=== PATIENT | male | born 1990 ===

== ENCOUNTER 2018-09-30 02:52 | Emergency (ER) | payer SELFPAY ==
[2018-09-30 03:02] VITALS: BP 142/92; PULSE 110; RESP 16; TEMP 98.3; O2SAT 98
--- NOTE | 2018-09-30 03:31 | ED PDOC ---
HPI: Psych/Substance Abuse Time Seen by Provider: 09/30/18 03:05 Chief Complaint (Nursing): Medical Clearance Chief Complaint (Provider): Medical clearance ED Caveat: Uncooperative Involuntary Hold By: Local Law Enforcement Additional Complaint(s): 27yo male, with past medical history of bipolar disorder, brought to ER by [place] police for medical and psychiatric clearance prior to incarceration. Patient is currently under custody due to DUI and cannabis possession. Upon arrival to ER, patient requesting to speak with a psychiatrist stating his mental health issues need attention; patient denies being on any medications. Per police, patient refused breathalyzer at scene and patient states he was not in possession of anything. HPI & ROS limited as patient is uncooperative. PMD: Dr. Connell Past Medical History Reviewed: Historical Data, Nursing Documentation, Vital Signs Vital Signs: Last Vital Signs Temp 98.3 F 09/30/18 02:59 Pulse 110 H 09/30/18 02:59 Resp 16 09/30/18 02:59 BP 142/92 H 09/30/18 02:59 Pulse Ox 98 09/30/18 02:59 - Medical History PMH: Bipolar Disorder - Surgical History Other surgeries: right hand surgery - Family History Family History: States: No Known Family Hx - Immunization History Hx Tetanus Toxoid Vaccination: Yes (UTD) - Allergies Allergies/Adverse Reactions: Allergies Allergy/AdvReac Type Severity Reaction Status Date / Time No Known Allergies Allergy Verified 09/30/18 03:02 Review of Systems Review Of Systems: ROS cannot be obtained secondary to pt's inabilty to answer questions. (patient uncooperative) Physical Exam - Reviewed Nursing Documentation Reviewed: Yes Vital Signs Reviewed: Yes - Physical Exam Appears: Positive for: Non-toxic, No Acute Distress Head Exam: Positive for: ATRAUMATIC, NORMAL INSPECTION, NORMOCEPHALIC Skin: Positive for: Normal Color Eye Exam: Positive for: Normal appearance Neck: Positive for: Painless ROM, Supple Cardiovascular/Chest: Positive for: Regular Rate, Rhythm Respiratory: Positive for: Normal Breath Sounds Gastrointestinal/Abdominal: Positive for: Soft. Negative for: Tenderness, Distended, Guarding Extremity: Positive for: Normal ROM (FROM left hand, wrist, and digits), Tenderness (diffuse), Capillary Refill (< 2 seconds), Other (superficial abrasions to dorsum of left hand and proximal phalanges). Negative for: Defo rmity, Swelling Neurologic/Psych: Positive for: Alert, Oriented (x3), Mood/Affect (agitated), Gait (steady in ED). Negative for: Aphasia, Facial Droop - ECG O2 Sat by Pulse Oximetry: 98 (RA) Pulse Ox Interpretation: Normal Medical Decision Making Medical Decision Making: Impression: 27yo male brought to ER for psych/medical clearance prior to incarceration Plan: -- UDS -- Serum alcohol -- Crisis evaluation -- Hand XR -- Tylenol 650mg PO 0322 Patient increasingly agitated, and due to concern for safety of patient as well as staff, patient placed in 4-point restraints. Patient seen at bedside by Dr Farnsworth. Patient refusing any blood or urine tests. 0330 4 point restraints removed. 0355 Patient cleared for discharge per Dr Rosales with the diagnosis of adjustment disorder. 0405 Hand XR: (-) fracture (-) dislocation as read by Gloria VO Patient notified that official radiology reading is still pending and that he would be notified of any discrepancies via phone. Bandaids applied to abrasions. Patient educated on wound care. Lab/Diagnostic results d/w the patient in great detail. Diagnosis of hand pain, skin abrasions, clearance for incarceration d/w the patient. Based on history, exam and diagnostic results, plan will be for discharge into PD custody. Patient instructed to follow-up with pmd / referral provided / the clinic in 1- 2 days without fail. Return to the emergency room at any time for any new or worsening symptoms. I have given the patient opportunity to ask any additional questions. Scribe Attestation: Documented by Jolene Mayes, acting as a scribe for BERTHA Cha. Provider Scribe Attestation: All medical record entries made by the Scribe were at my direction and personally dictated by me. I have reviewed the chart and agree that the record accurately reflects my personal performance of the history, physical exam, medical decision making, and the department course for this patient. I have also personally directed, reviewed, and agree with the discharge instructions and disposition. Disposition - Clinical Impression Clinical Impression: Medical clearance for incarceration, Hand pain, left, Skin abrasion - Patient ED Disposition Is Patient to be Admitted: No Counseled Patient/Family Regarding: Studies Performed, Diagnosis, Need For Followup - Disposition Referrals: Bro Connell MD [Staff Provider] - Disposition: Discharged/Transfer to Law Enforcement Disposition Time: 04:05 Condition: FAIR Additional Instructions: PATIENT IS MEDICALLY AND PSYCHIATRICALLY STABLE FOR INCARCERATION. Instructions: Wound Care, Muscle and Bone Pain (DC), Skin Abrasions (DC), Hand Pain (DC) Forms: [facility] (Latvian) Print Language: DANISH - POA Present On Arrival: None
--- NOTE | 2018-09-30 13:44 | RAD ---
PROCEDURE: Left Hand Radiographs. HISTORY: Left hand pain/numbness COMPARISON: None. FINDINGS: BONES: Normal. No fracture. JOINTS: Normal. No osteoarthritic changes. SOFT TISSUES: Normal. OTHER FINDINGS: None. IMPRESSION: Normal left hand radiographs.
== END 2018-09-30 04:20 ==
LOC: H.ER 02:52
DX: M79.642 Pain in left hand (principal); S60.512A Abrasion of left hand, initial encounter; F31.9 Bipolar disorder, unspecified; Y35.813A Legal intervention involving manhandling, suspect injured, initial encounter; Y92.89 Other specified places as the place of occurrence of the external cause

== ENCOUNTER 2018-10-01 00:19 | Inpatient (IN) | payer OTHER ==
[2018-10-01 00:42] VITALS: O2SAT 100
--- NOTE | 2018-10-01 01:50 | ED PDOC ---
HPI: Psych/Substance Abuse Time Seen by Provider: 10/01/18 00:34 Chief Complaint (Nursing): Psychiatric Evaluation Chief Complaint (Provider): Psychiatric Evaluation History Per: Patient History/Exam Limitations: no limitations Onset/Duration Of Symptoms: Days (intermittent since 2011) Current Symptoms Are (Timing): Still Present Suicide/Self Injury Attempted (Context): None Additional Complaint(s): Patient is a 27 year old male who presents for psychiatric evaluation, as directed by [facility]. Patient was seen by this provider last night for medical clearance for incarceration as he was in custody for a DWI. Patient reports excessive drinking recently to "avoid his problems". Patient notes that since 2011 he has been having intermittent episodes of suicidal thoughts that have been worsening. Patient reports today they are "more intense" than usual. Patient states he has had thoughts of overdosing on aspirin, shooting himself in the head (patient does not have access to a gun), or jumping into the [place]. Patient reports he has never sought help for this until now; patient was told in the past he may be bipolar from a family friend but he has never been clinically diagnosed or medicated for mental illness. Patient notes his mother and sister both suffer from PTSD and anxiety. No physical complaints. Denies HI, A/V hallucinations. PMD: Ko Past Medical History Reviewed: Historical Data, Nursing Documentation, Vital Signs Vital Signs: Last Vital Signs Temp 98.3 F 10/01/18 00:40 Pulse 82 10/01/18 00:40 Resp 18 10/01/18 00:40 BP 130/98 H 10/01/18 00:40 Pulse Ox 100 10/01/18 00:40 - Medical History PMH: No Chronic Diseases - Surgical History Surgical History: No Surg Hx - Family History Family History: States: Other Other Family History: PTSD, Anxiety - Social History Current smoker - smoking cessation education provided: Yes (3 cigs/day) Alcohol: Other (daily) Drugs: Cannabis (daily) - Immunization History Hx Tetanus Toxoid Vaccination: Yes (UTD) - Allergies Allergies/Adverse Reactions: Allergies Allergy/AdvReac Type Severity Reaction Status Date / Time No Known Allergies Allergy Verified 09/30/18 03:02 Review of Systems ROS Statement: Except As Marked, All Systems Reviewed And Found Negative Psych: Positive for: Suicidal ideation Physical Exam - Reviewed Nursing Documentation Reviewed: Yes Vital Signs Reviewed: Yes - Physical Exam Comments: GENERALIZED APPEARANCE: Patient is awake, alert, oriented x3 and in no acute distress. SKIN: Warm, dry; (-) cyanosis ENMT: Airway patent, (-) stridor. Mucous membranes moist. NECK: Supple, FROM CHEST AND RESPIRATORY: (-) retractions, (-) rales, (-) rhonchi, (-) wheezes; breath sounds equal bilaterally. Respirations even and nonlabored. HEART AND CARDIOVASCULAR: (-) irregularity ABDOMEN AND GI: Soft; (-) tenderness; (-) distention, (-) guarding EXTREMITIES: (-) deformity NEURO AND PSYCH: Mental status as above. Affect: flat. Gait: steady. Speech: clear. - Laboratory Results Result Diagrams: 10/01/18 03:17 10/01/18 03:17 - ECG O2 Sat by Pulse Oximetry: 100 (RA) Pulse Ox Interpretation: Normal Medical Decision Making Medical Decision Making: Initial Impression: psychiatric evaluation, suicidal ideation Plan: -1:1 observation -Crisis evaluation -Re-evaluation 0250 Per crisis evaluation, patient to be admitted per Dr Rosales with the diagnosis of adjustment disorder with depressed mood. CBC, CMP, U/A, Serum Alcohol, UDS ordered for medical clearance. 0320 Utox: (+) cannabinoids 0350 U/A (-) evidence of UTI CBC and CMP grossly unremarkable. Serum Alcohol: <10 Patient is medically stable for psychiatric admission. Vitals stable. Patient agreeable to admission. Disposition - Clinical Impression Clinical Impression: Adjustment disorder with depressed mood - Patient ED Disposition Is Patient to be Admitted: Yes Counseled Patient/Family Regarding: Studies Performed, Diagnosis - Disposition Disposition Time: 03:15 Condition: FAIR - Pt Status Changed To: Hospital Disposition Of: Inpatient - Admit Certification Admit to Inpatient:: After my assessment, the patient will require hospitalization for at least two midnights. This is because of the severity of symptoms shown, intensity of services needed, and/or the medical risk in this patient being treated as an outpatient. - POA Present On Arrival: None Results - Lab Results Lab Results: 10/01/18 01:05 Urine Opiates Screen Negative Urine Methadone Screen Negative Ur Barbiturates Screen Negative Ur Phencyclidine Scrn Negative Ur Amphetamines Screen Negative U Benzodiazepines Scrn Negative U Oth Cocaine Metabols Negative U Cannabinoids Screen Positive H
[2018-10-01 02:45] LABS: BARBITURATES, UR NEGATIVE (NEGATIVE); BENZODIAZEPINES, UR NEGATIVE (NEGATIVE); OPIATES, UR NEGATIVE (NEGATIVE); PHENCYCLIDINE, UR NEGATIVE (NEGATIVE)
[2018-10-01 03:24] LABS: BASO % 0.4 % (0.0-2.0); EOS % 0.2 % (0.0-4.0); HEMOGLOBIN 14.4 g/dL (12.0-18.0); LYMPH # 2.1 K/uL (1.0-4.3); LYMPH % 32.3 % (20.0-40.0); MEAN CELL VOLUME 91.4 fl (80.0-94.0); MEAN CORPUSCULAR HEMOGLOBIN 31.3 pg (27.0-31.0); MEAN CORPUSCULAR HGB CONC 34.2 g/dL (33.0-37.0); MEAN PLATELET VOLUME 7.4 fl (7.2-11.7); MONO # 0.6 K/uL (0.0-0.8); MONO % 8.9 % (0.0-10.0); NEUT # 3.8 K/uL (1.8-7.0); NEUT % 58.2 % (50.0-75.0); NRBC % 0.1 % (0.0-0.0); RBC 4.61 Mil/uL (4.40-5.90); RED CELL DISTRIBUTION WIDTH 12.7 % (11.5-14.5); WHITE BLOOD COUNT 6.5 K/uL (4.8-10.8)
[2018-10-01 03:36] LABS: ALB/GLOB RATIO 1.6 (1.0-2.1); ALBUMIN 4.4 g/dL (3.5-5.0); ALT/SGPT 21 U/L (21-72); AST/SGOT 31 U/L (17-59); BLOOD UREA NITROGEN 19 mg/dl (9-20); CALCIUM 9.3 mg/dL (8.4-10.2); GFR NON-AFRICAN AMERICAN > 60
[2018-10-01 03:47] LABS: SQUAMOUS EPITHIAL < 1 /hpf (0-5); URINE BILIRUBIN NEGATIVE (NEGATIVE); URINE BLOOD NEGATIVE (NEGATIVE); URINE CLARITY SLIGHTY-CLOUDY (Clear); URINE COLOR YELLOW (YELLOW); URINE GLUCOSE (UA) NEG (NEGATIVE); URINE LEUKOCYTE ESTERASE NEG Leu/uL (Negative); URINE PROTEIN 30 mg/dL (NEGATIVE); URINE UROBILINOGEN 0.2-1.0 mg/dL (0.2-1.0)
[2018-10-01] MEDS ORDERED: Magnesium Hydroxide Susp 30 ml UD PO PRN (04:42)
[2018-10-01] MEDS ORDERED: Alum-Mag Hydrox-Simethicone Susp (30 mL) PO PRN (04:42)
--- NOTE | 2018-10-01 06:28 | PCM.BM ---
Treatment Plan Problems - Problems identified on initial assessmt Hopelessness/Helplessness Date Initiated: 10/01/18 Time Initiated: : Assessment reference: NA Status: Active Altered Sleep Patterns Date Initiated: 10/01/18 Time Initiated: Assessment reference: NA Status: Active Treatment assets and liabiliti Patient Assests: cooperative, educated, ADL independent, physically healthy, negotiates basic needs, cognitively intact Patient Liabilities: live alone, poor support system, substance abuse - Milieu Protocol Maintain good personal hygiene: daily Encourage regular showers, daily Remind patient to perform daily oral care, daily Assist patient to perform ADL's Conduct patient checks and document Observation sheet: Q15 minutes Maintain personal safety: every shift Educate patient to report safety concerns to staff, every shift Monitor environment for contraband/sharps Medication safety: Monitor for expected outcome, potential side effects: every shift, Assess barriers to learning: every shift, Assess readiness for medication education: every shift
--- NOTE | 2018-10-01 10:03 | CP.PCM.CON ---
History of Present Illness - History of Present Illness History of Present Illness: Reason for Consult: Per hospital protocol HPI: 27 year old male no past medical hx initially evaluated in ED for medical clearance for incarceration for DWI. Patient subsequently admitted to psych for suicidal ideations. No other complaints at this time. NAD. HD stable. ROS: Per HPI, all other systems reviewed and neg Past Patient History - Past Social History Alcohol: Other (daily) Drugs: Cannabis (daily) - CARDIAC Hx Cardiac Disorders: No Hx Hypertension: No - PULMONARY Hx Respiratory Disorders: No Hx Tuberculosis: No - NEUROLOGICAL Hx Neurological Disorder: No Hx Seizures: No - HEENT Hx HEENT Problems: No - RENAL Hx Chronic Kidney Disease: No - ENDOCRINE/METABOLIC Hx Endocrine Disorders: No - HEMATOLOGICAL/ONCOLOGICAL Hx Blood Disorders: No Hx Human Immunodeficiency Virus (HIV): No - INTEGUMENTARY Hx Dermatological Problems: No - MUSCULOSKELETAL/RHEUMATOLOGICAL Hx Musculoskeletal Disorders: No - GASTROINTESTINAL Hx Gastrointestinal Disorders: No - GENITOURINARY/GYNECOLOGICAL Hx Genitourinary Disorders: No Hx Sexually Transmitted Disorders: No - PSYCHIATRIC Hx Depression: Yes Hx Substance Use: Yes (MJ) - SURGICAL HISTORY Hx Surgeries: Yes Hx Orthopedic Surgery: Yes (rt hand) - ANESTHESIA Hx Anesthesia: Yes Hx Anesthesia Reactions: No Meds Allergies/Adverse Reactions: Allergies Allergy/AdvReac Type Severity Reaction Status Date / Time No Known Allergies Allergy Verified 09/30/18 03:02 - Medications Medications: Current Medications Acetaminophen (Tylenol 325mg Tab) 650 mg PO Q4 PRN PRN Reason: pain level 1-10 Al Hydrox/Mg Hydrox/Simethicone (Maalox Plus 30 Ml) 30 ml PO Q4 PRN PRN Reason: Dyspepsia Diphenhydramine HCl (Benadryl) 50 mg PO HS PRN PRN Reason: Sleep Lorazepam (Ativan) 2 mg IM Q8 PRN PRN Reason: Anxiety/Agitation,Unable PO Lorazepam (Ativan) 1 mg PO Q8 PRN PRN Reason: Anxiety/Agitation Magnesium Hydroxide (Milk Of Magnesia) 30 ml PO HS PRN PRN Reason: Constipation Physical Exam - Constitutional Additional comments: Vitals Reviewed GEN: WDWN, alert, cooperative HEENT: NCAT, PERRL, EOMI HEART: RRR, +S1S2, NO MRG LUNG: CTAB, NO WRR ABD: soft, NT, ND, No HSM, No masses EXT: normal pedal pulses NEURO: awake, alert SKIN: warm, dry PSYCH: normal mood, normal affect Results - Vital Signs Recent Vital Signs: Last Vital Signs Temp 97.1 F L 10/01/18 06:15 Pulse 83 10/01/18 06:15 Resp 18 10/01/18 06:18 BP 137/90 10/01/18 06:15 Pulse Ox 100 10/01/18 05:02 - Labs Result Diagrams: 10/01/18 03:17 10/01/18 03:17 Labs: Laboratory Results - last 24 hr 10/01/18 10/01/18 10/01/18 01:05 03:17 03:17 WBC 6.5 RBC 4.61 Hgb 14.4 Hct 42.2 MCV 91.4 MCH 31.3 H MCHC 34.2 RDW 12.7 Plt Count 221 MPV 7.4 Neut % (Auto) 58.2 Lymph % (Auto) 32.3 [place] % (Auto) 8.9 Eos % (Auto) 0.2 Baso % (Auto) 0.4 Neut # (Auto) 3.8 Lymph # (Auto) 2.1 [place] # (Auto) 0.6 Eos # (Auto) 0.0 Baso # (Auto) 0.0 Sodium 137 Potassium 3.8 Chloride 100 Carbon Dioxide 27 Anion Gap 14 BUN 19 Creatinine 0.9 Est GFR ( Amer) > 60 Est GFR (Non-Af Amer) > 60 Random Glucose 93 Calcium 9.3 Total Bilirubin 1.4 H AST 31 ALT 21 Alkaline Phosphatase 79 Total Protein 7.1 Albumin 4.4 Globulin 2.7 Albumin/Globulin Ratio 1.6 Urine Color Urine Clarity Urine pH Ur Specific Jenn[place] Urine Protein Urine Glucose (UA) Urine Ketones Urine Blood Urine Nitrate Urine Bilirubin Urine Urobilinogen Ur Leukocyte Esterase Urine RBC (Auto) Urine Microscopic WBC Ur Squamous Epith Cells Urine Opiates Screen Negative Urine Methadone Screen Negative Ur Barbiturates Screen Negative Ur Phencyclidine Scrn Negative Ur Amphetamines Screen Negative U Benzodiazepines Scrn Negative U Oth Cocaine Metabols Negative U Cannabinoids Screen Positive H Alcohol, Quantitative < 10 10/01/18 03:17 WBC RBC Hgb Hct MCV MCH MCHC RDW Plt Count MPV Neut % (Auto) Lymph % (Auto) [place] % (Auto) Eos % (Auto) Baso % (Auto) Neut # (Auto) Lymph # (Auto) [place] # (Auto) Eos # (Auto) Baso # (Auto) Sodium Potassium Chloride Carbon Dioxide Anion Gap BUN Creatinine Est GFR ( Amer) Est GFR (Non-Af Amer) Random Glucose Calcium Total Bilirubin AST ALT Alkaline Phosphatase Total Protein Albumin Globulin Albumin/Globulin Ratio Urine Color Yellow Urine Clarity Slighty-cloudy Urine pH 6.0 Ur Specific Jenn[place] 1.030 Urine Protein 30 Urine Glucose (UA) Neg Urine Ketones 20 Urine Blood Negative Urine Nitrate Negative Urine Bilirubin Negative Urine Urobilinogen 0.2-1.0 Ur Leukocyte Esterase Neg Urine RBC (Auto) 2 Urine Microscopic WBC 4 Ur Squamous Epith Cells < 1 Urine Opiates Screen Urine Methadone Screen Ur Barbiturates Screen Ur Phencyclidine Scrn Ur Amphetamines Screen U Benzodiazepines Scrn U Oth Cocaine Metabols U Cannabinoids Screen Alcohol, Quantitative Assessment & Plan - Assessment and Plan (Free Text) Plan: 27 year old male no past medical hx initially evaluated in ED for medical clearance for incarceration for DWI. Patient subsequently admitted to psych for suicidal ideations. No other complaints at this time. NAD. HD stable. Suicidal Ideations management per psych
--- NOTE | 2018-10-01 14:42 | PCM.PSYCH ---
Initial Psychiatric Evaluation - Initial Psychiatric Evaluation Chief Complaint (in patient's own words): I have been depressed for a long time History of Present Illness and Precipitating Events: pt is 27 ys old male without previous formal psychiatric treatment , PT has been brought t ER after being arrested for DUI reportedly pt has been driving while intoxicated and he was on phone with suicidal hot line as pt was having suicidal thoughts with plan to overdose on tylenol pt has been increasingly depressed after a recent break up with girl friend , reported low self esteem feeling worthless and hopeless, using increasing amount of alcohol and cannabis, having increased anxiety and racing thoughts, episodes of anger and irritability, on day of evaluation after having conflict with ex girl friend he started experiencing suicidal ideations on the unit pt reported mood swings, tearful, irritable continues to have passive suicidal ideation without active plan on the unit Current Medications: Active Medications Generic Name Dose Route Start Last Admin Trade Name Freq PRN Reason Stop Dose Admin Acetaminophen 650 mg 10/01/18 06:38 Tylenol 325mg Tab PO Q4 PRN pain level 1-10 Al Hydrox/Mg Hydrox/Simethicone 30 ml 10/01/18 04:42 Maalox Plus 30 Ml PO Q4 PRN Dyspepsia Aripiprazole 5 mg 10/02/18 09:00 Abilify PO DAILY DESTINEY Diphenhydramine HCl 50 mg 10/01/18 04:47 Benadryl PO HS PRN Sleep Gabapentin 100 mg 10/01/18 13:00 Neurontin PO TID DESTINEY Lorazepam 2 mg 10/01/18 04:42 Ativan IM Q8 PRN Anxiety/Agitation,Unable PO Lorazepam 1 mg 10/01/18 04:42 10/01/18 12:15 Ativan PO 1 mg Q8 PRN Administration Anxiety/Agitation Magnesium Hydroxide 30 ml 10/01/18 04:42 Milk Of Magnesia PO HS PRN Constipation Trazodone HCl 50 mg 10/01/18 22:00 Desyrel PO HS DESTINEY Past Psychiatric History - Past Psychiatric History Nature of Treatment: non reported History of ETOH/Drug Use: hx of alcohol and cannabis use Pertinent Medical Hx (Current Medical&Sleep Prob, Allergies): Allergies Allergy/AdvReac Type Severity Reaction Status Date / Time No Known Allergies Allergy Verified 09/30/18 03:02 Mental Status Examination - Personal Presentation Personal Presentation: Looks stated age - Affect Affect: Constricted, Depressed Additional comments: tearful - Motor Activity Motor Activity: Psychomotor Retardation - Reliability in Providing Information Reliability in Providing Information: Fair - Speech Speech: Relevant - Mood Mood: Depressed, Anxious - Formal Thought Process Formal Thought Process: Circumstantial - Obsessions/Compulsions Obsessions: No Compulsions: No - Cognitive Functions Orientation: Person, Place, Situation Sensorium: Alert Judgement: Imparied, as evidence by: Poor judgement - Risk Risk: Suicidal, Withdrawal, Diminished functioning - Strength & Assets Inventory Strength & Assets Inventory: Family support - Limitations Additional comments: conflict with girl friend DSM 5 DX - DSM 5 DSM 5 Diagnosis: depression rule out bipolar disorder depressed alcohol abuse cannabis abuse - Recommended/Plan of Treatment Treatment Recommendations and Plan of Treatment: start abilify 5mg, increase gradually neurontin 100mg tid CBT group and supportive therapy
[2018-10-02 07:36] LABS: T4 7.55 ug/dl (5.5-11.0)
--- NOTE | 2018-10-02 11:31 | PCM.PYCHPN ---
Psychiatric Progress Note - Psychiatric Progress Note Patient seen today, length of contact: pt evaluated discussed with team chart reviewed Patient Chief Complaint: I have been depressed for a long time Problems Identified/Issues Discussed: pt evaluated , presenting with anxious mood , irritable and labile affect, pt requesting to be discharged, guarded and evasive, showing limited insight into illness, continues to be experiencing racing thoughts, denid any current suicidal ideation denied command hallucinations DSM 5 Symptoms Update: bipolar disorder depressed alcohol use cannabis use Medication Change: Yes Medical Record Reviewed: Yes Mental Status Examination - Cognitive Function Orientation: Person, Place, Situation Attention: WNL Concentration: WNL Association: WNL Fund of Knowledge: [facility] Decription of patient's judgement and insights: partial insight fair judgment - Mood Mood: Depressed, Anxious - Affect Affect: Constricted, Depressed - Speech Speech: Soft - Formal Thought Process Formal Thought Process: Circumstantial - Homicidal Ideation Homicidal Ideation: No Goal/Treatment Plan - Goal/Treatment Plan Need for Continued Stay: Severe depression anxiety, Discharge may exacerbated symptoms Progress Toward Problem(s) and Goals/Treatment Plan: pt at current mental status continues to be depressed with labile affect, signed 48 notice requesting discharge, pt continues to be a at risk for suicide and self harm, pt will be referred for screening for involuntary admission for jose raul nuity of treatment increase abilify 10mg daily neurontin 100mg tid CBT group and supportive therapy
[2018-10-02 17:16] VITALS: PULSE 81
[2018-10-03 09:17] VITALS: BP 134/93; RESP 17; TEMP 96.9
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
== END 2018-10-03 12:30 | disposition left against medical advice (07) | DRG 881 ==
LOC: H.ER 00:19 → H.ERHOLD 03:15 → H.PSYCH 06:09
PROVIDERS: ADMIT Psychiatry & Neurology Psychiatry; ATTEND Psychiatry & Neurology Psychiatry
PROC: GZHZZZZ Group Psychotherapy (ICD-10-PCS; principal; 2018-10-01)
PROC: GZ58ZZZ Individual Psychotherapy, Cognitive-Behavioral (ICD-10-PCS; 2018-10-01)
PROC: HZ52ZZZ Individual Psychotherapy for Substance Abuse Treatment, Cognitive-Behavioral (ICD-10-PCS; 2018-10-01)
DX: F43.21 Adjustment disorder with depressed mood (principal); F10.14 Alcohol abuse with alcohol-induced mood disorder; R45.851 Suicidal ideations; F12.10 Cannabis abuse, uncomplicated; F41.9 Anxiety disorder, unspecified; G47.00 Insomnia, unspecified; F17.210 Nicotine dependence, cigarettes, uncomplicated